=== PATIENT | male | born 1975 | race African-American/Black ===

== ENCOUNTER 2017-06-26 13:59 | Emergency (ER) | payer OTHER ==
[~2017-06-26] VITALS: Ht 172.7 cm; Wt 72.6 kg
[2017-06-26 14:23] VITALS: BP 114/65
[2017-06-26] MEDS: KETOROLAC TROMETH 60MG/2ML VIAL IM ONE (15:39)
== END 2017-06-26 16:38 | disposition home or self-care (01) ==
LOC: ER 13:59
DX: S50.11XA Contusion of right forearm, initial encounter (principal); W18.2XXA Fall in (into) shower or empty bathtub, initial encounter; Y93.89 Activity, other specified; Y92.091 Bathroom in other non-institutional residence as the place of occurrence of the external cause; Y99.8 Other external cause status
CPT/HCPCS: 70450; 73090; 96372; 99284; J1885